=== PATIENT | female | born 1945 ===

== ENCOUNTER 2020-09-26 13:39 | Outpatient (CLI) | payer OTHER | END 2020-09-26 13:40 | disposition home or self-care (01) | LOC: MAMO-SONO 13:39 | PROVIDERS: ATTEND Internal Medicine Cardiovascular Disease | DX: E55.9 Vitamin D deficiency, unspecified (principal); M81.0 Age-related osteoporosis without current pathological fracture ==

== ENCOUNTER 2020-10-03 12:59 | Outpatient (CLI) | payer OTHER | END 2020-10-03 14:31 | disposition home or self-care (01) | LOC: MAMO-SONO 12:59 | PROVIDERS: ATTEND Internal Medicine Cardiovascular Disease | DX: N63.11 Unspecified lump in the right breast, upper outer quadrant (principal); Z12.31 Encounter for screening mammogram for malignant neoplasm of breast ==